=== PATIENT | female | born 1950 | race Caucasian/White ===

== ENCOUNTER 2016-11-11 21:13 | Observation (INO) ==
[2016-11-11] MEDS ORDERED: NITROGLYCERIN 2% OINT 1 INCH/GM PACK TOP STA (21:50)
[2016-11-11] MEDS ORDERED: ASPIRIN 325 MG TABLET PO STA (21:50)
[2016-11-11] MEDS ORDERED: METOPROLOL TARTRATE 5 MG/5 ML VIAL IV STA (21:50)
[2016-11-11] MEDS ORDERED: NITROGLYCERIN 2% OINT 1 INCH/GM PACK TOP ONE (22:04)
[2016-11-11] MEDS ORDERED: ASPIRIN 325 MG TABLET ONE (22:04)
[2016-11-11] MEDS ORDERED: METOPROLOL TARTRATE 5 MG/5 ML VIAL IV ONE (22:04)
--- NOTE | 2016-11-11 22:22 | Emergency Department Note ---
Dior Fry Mantricia, am scribing for, and in the presence of, Maci Priest DO 22:03. ICem Debra, DO, personally performed the services described in this documentation, ascribed by Lamar Rader in my presence, and it is both accurate and complete . Arrival - Arrival Chief Complaint: Chest Pain Stated Complaint: chest pain, N/D ED Nursing Triage Note: C/O CHEST PAIN WITH NAUSEA/VOMITING WITH ONSET AT [facility] 1630 THIS EVENING. + TIGHTNESS AT TRIAGE Mode of Arrival: Ambulatory Limitations: No Limitations Source: Patient Time Seen by Provider: 11/11/16 21:49 - History of Present Illness HPI Narrative: Pt is a 66 y/o white female ambulating to ED with c/o left sided chest pain that onset 1600 today. Pt reports that she was outside in her yard working when she felt a sharp pain in her chest. She reports that she became nauseated, which prompted her to go sit down, which relieved the pain minimally.She denies any radiation of the pain and denies abdominal pain or LE swelling. She reports that she had a stress test and echo performed when she was 39 due to a FHx of heart problems; her tests were benign. At time of exam, pt's blood pressure is 202/93. She reports that she has taken her hypertensives today as prescribed. She reports a chest tightness while in ED. No other complaints were reported to ED. Onset (ago): hour(s) Consistency: constant Severity: moderate Date of Last Menstrual Period: MENAPAUSE Allergies/Adverse Reactions: Allergies Allergy/AdvReac Type Severity Reaction Status Date / Time lidocaine Allergy Unknown/Unable Verified 11/11/16 21:21 to obtain Sulfa (Sulfonamide Allergy Unknown/Unable Verified 11/11/16 21:21 Antibiotics) to obtain tramadol Allergy Nausea Verified 11/11/16 21:21 Review of System - Review of System 12 point system: reviewed and no additional remarkable complaints except as stated - Review of System Constitutional: Absent: chills, diaphoresis, fever Respiratory: Absent: cough Cardiovascular: Present: chest pain Gastrointestinal: Present: nausea. Absent: abdominal pain, vomiting, diarrhea Musculoskeletal: Absent: arm pain, back pain, leg pain, neck pain Medical,Surgical,& Family Hx - Medical History Cardio: History of: Hypertension Gastrointestinal: History of: GERD Musculoskeletal: History of: Back/Neck Problems - Family History Family History: Reports;: Family Cancer, Family Diabetes, Family Heart Disease, Family Hypertension, Family Stroke - Social History Smoking Status: Never smoker Frequency of Alcohol Use: None Type of Drug Use: None Exam Vital Signs: Vital Signs Temperature 98.7 F 11/11/16 21:21 Pulse Rate 106 H 11/11/16 21:21 Respiratory Rate 20 11/11/16 21:21 Blood Pressure 172/107 11/11/16 21:21 O2 Sat by Pulse Oximetry 98 11/11/16 21:21 - General General appearance: alert, in no apparent distress - Head Head exam: Present: atraumatic, normocephalic - Eye Eye exam: Present: normal appearance, PERRL, EOMI - ENT ENT exam: Present: normal exam - Neck Neck exam: Present: normal inspection - Chest Chest inspection: Present: normal inspection - Respiratory Respiratory exam: Present: normal lung sounds bilaterally - Cardiovascular Cardiovascular exam: Present: regular rate, normal rhythm, normal heart sounds - Abdominal Exam Abdominal exam: Present: soft. Absent: distention, tenderness, guarding, rebound - Extremities Exam Extremities exam: Present: normal inspection - Back Exam Back exam: Present: normal inspection - Neurological Exam Neurological exam: Present: alert, oriented X3, CN II-XII intact - Psychiatric Psychiatric exam: Present: normal affect, normal mood - Skin Skin exam: Present: warm, dry, intact, normal color Course Course Narrative: spoke with hospitalist, who will admit pt for rule out. Results - Labs CBC & BMP: 11/11/16 22:07 11/11/16 22:07 Lab Results: I have reviewed the patients labs - EKG EKG results: interpreted by KATHLEEND EKG shows: tachycardia - Diagnostic Findings Procedure: X-ray: image reviewed by me (mild increased vasculature. no infiltrate) Disposition Clinical Impression: Chest pain Case discussed with: patient, patient's family Disposition: Still a Patient Condition: Stable Time of Disposition: 23:08
[2016-11-11 22:32] LABS: Basophils # 0.1 10*3/uL (0.0-0.2); Basophils % 0.8 % (0.0-0.8); Eosinophils # 0.1 10*3/uL (0.0-0.87); Eosinophils % 0.7 % (0.00-10.9); Hematocrit 40.3 VOL% (35.7-47.0); Hemoglobin 14.1 GM/DL (12.0-16.0); Immature Granulocytes % 0.4 %; Immature Granulocytes Absolute 0.04 #; Lymphocytes # 2.3 10*3/uL (1.4-4.0); Lymphocytes % 21.5 % (21.3-54.2); Mean Corpuscular Hemoglobin 30 PG (27-34); Mean Corpuscular Volume 85.2 FL (87-102); Mean Platelet Volume 9.9 FL (9.6-12.0); Monocytes # 0.5 10*3/uL (0.11-0.8); Monocytes % 5.1 % (1.7-12.7); Neutrophils # 7.5 10*3/uL (1.4-7.4); Neutrophils % 71.5 % (38.7-73.9); Platelet Count 276 T/CUMM (130-400); Red Blood Count 4.73 MC/CUMM (3.8-5.5); White Blood Count 10.5 T/CUMM (4-12)
[2016-11-11 22:42] LABS: PT Patient Result 10.4 SECS; Partial Thromboplastin Time 26.8 SECS (0-40)
[2016-11-11 22:56] LABS: Alanine Aminotransferase 41 U/L (13-56); Alkaline Phosphatase 165 U/L (45-117); Aspartate Amino Transferase 17 U/L (0-37); Bilirubin,Total < 0.39 MG/DL (0.2-1.0); Blood Urea Nitrogen 17 MG/DL (7-18); CKMB % 3.7 %; Calcium 9.4 MG/DL (8.5-10.1); Glucose 152 MG/DL (74-106); Osmolality,Calculated 287.1 MOS/KG (273-304); Potassium 3.9 MMOL/L (3.5-5.1); Sodium 142 MMOL/L (136-145); Total Protein 7.6 G/DL (6.4-8.3); Troponin I Only 0.038 NG/ML (0.00-0.045)
[2016-11-11] MEDS ORDERED: ONDANSETRON 4 MG/2 ML VIAL IV PRN (23:42)
[2016-11-11] MEDS ORDERED: ACETAMINOPHEN 325 MG TABLET PO PRN (23:42)
[2016-11-11] MEDS ORDERED: MORPHINE 2 MG/1 ML SYRINGE IV PRN (23:42)
[2016-11-12] MEDS ORDERED: NITROGLYCERIN SL 0.4 MG TABLET SL PRN (00:30)
[2016-11-12] MEDS ORDERED: METOPROLOL TARTRATE 5 MG/5 ML VIAL IV ONE (01:07)
--- NOTE | 2016-11-12 01:12 | Hospitalist History & Physical ---
Assessment and Plan (1) Chest pain Status: Acute Assessment and plan: Admit to hospitalist services. Consult cardiology. Initial troponin was 0.038 and initial CK-MB was 5.1; follow serial cardiac enzymes. Initial EKG showed sinus tachycardia; follow serial EKGs. Nitroglycerin topical x 1 dose and Metoprolol 5 mg IV x 1 dose given in ED; chest pain relieved but still hypertensive. Continue Nitroglycerin 0.4 mg SL Q5 minutes PRN. Hydralazine 10 mg IV Q6 hours PRN. Patient reports that she takes Mycardis for BP. No home medications have been recorded yet. Message to nursing to obtain home medications and update. Consider adding secondary antihypertensive agent. ASA 325 mg PO x 1 dose given in ED; continue with ASA 81 mg PO daily. O2 per protocol. CPAP at home settings. Check TSH/Free T4, A1c, lipid panel, and magnesium in a.m. Recheck CMP in a.m. Current Visit: Yes (2) Hypertension Status: Chronic Assessment and plan: As above. Current Visit: Yes (3) Hyperglycemia Status: Acute Assessment and plan: Patient denies a PMH of diabetes, however BG was 152 in ED. Check A1c in a.m. Current Visit: Yes (4) Acute kidney injury Status: Acute Assessment and plan: Creatinine 1.2 in ED. Likely dehydration from working outside today. Na 142 and Chloride 108. Allow to self-hydrate with water. Recheck CMP in a.m. Current Visit: Yes (5) DVT prophylaxis Status: Acute Assessment and plan: Lovenox 40 mg SQ daily. Current Visit: Yes History of Present Illness Chief complaint: Chest pain History of present illness: Ms. Dinh is a 66 year old female with past medical history of hypertension , GERD, and obstructive sleep apnea who presented to the emergency department today with complaints of chest pain that started around 1630 this afternoon. Ms. Dinh reports that she was working in her yard when she began to experience the chest pain which felt like palpitations and chest tightness. Additionally, she also complained of nausea, weakness, and diaphoresis. She denies vomiting, shortness of breath, and loss of consciousness. The entirety of the event lasted about 10 minutes, with symptoms subsiding about 5 minutes after she sat on her porch and rested. She denies previous episodes of chest pain. She reports that her father from [place] in his 50s and her brother from [place] at the age of 44. Significant labs in the ED were Creatinine 1.2 , Blood glucose 152, and CK-MB 5.1. All other labs were unremarkable. Her EKG showed sinus tachycardia. CXR was negative for any acute process. She was given Nitroglycerin and Metoprolol in the ED. She is currently pain free but remains hypertensive with SBP in the 160s. Hospitalist services were consulted, and the patient will be admitted for further evaluation and treatment. Home medications were not available for review and reconciliation. This patient is a full code. Allergies Allergy/AdvReac Type Severity Reaction Status Date / Time lidocaine Allergy Unknown/Unable Verified 11/11/16 21:21 to obtain Sulfa (Sulfonamide Allergy Unknown/Unable Verified 11/11/16 21:21 Antibiotics) to obtain tramadol Allergy Nausea Verified 11/11/16 21:21 Medical,Surgical,& Family Hx - Medical History Cardio: History of: Hypertension Respiratory: History of: Obstructive Sleep Apnea (uses CPAP at home) Gastrointestinal: History of: GERD Musculoskeletal: History of: Back/Neck Problems - Surgical History HEENT Surgeries: Surgical HX of: Tonsilectomy & Adenoidectomy Abdominal Surgeries: Surgical HX of: Appendectomy Reproductive Surgeries: Surgical HX of;: Tubal Ligation Additional Surgical History: Fatty tumor removal; Basal cell and squamous cell skin cancer removal. - Family History Family History: Reports;: Family Cancer, Family Diabetes, Family Heart Disease, Family Hypertension, Family Stroke - Social History Smoking Status: Never smoker Have you smoked in the last 12 months: No Frequency of Alcohol Use: None Type of Drug Use: None Marital Status: Lives With:: Spouse Functional capacity: independent ambulation 12 point system: reviewed and no additional remarkable complaints except as stated - Constitutional Constitutional: Present: weakness. Absent: chills, fatigue, fever(s), headache( s), malaise - EENT Eyes: Absent: blurry vision, diplopia, loss of vision Ears: Absent: decreased hearing, ear discharge, ear pain Nose, mouth and throat: Absent: headache(s), nasal congestion, sore throat - Cardiovascular Cardiovascular: Present: chest pain with activity, diaphoresis, palpitations. Absent: chest pain at rest, dyspnea, dyspnea on exertion, edema, radiating jaw, neck or arm pain, lightheadedness, orthopnea - Respiratory Respiratory: Absent: cough, dyspnea, wheezing - Gastrointestinal Gastrointestinal: Present: nausea. Absent: abdominal pain, constipation, diarrhea, vomiting - Genitourinary Genitourinary: Absent: dysuria, flank pain, urinary frequency - Musculoskeletal Musculoskeletal: Absent: arthralgias, joint swelling, muscle weakness, myalgias - Neurological Neurological: Absent: confusion, dizziness, numbness, paresthesias, syncope - Psychiatric Psychiatric: Absent: anxiety, depression - Endocrine Endocrine: Absent: cold intolerance, polydipsia, polyphagia - Hematologic/Lymphatic Hematologic/Lymphatic: Absent: easy bleeding, easy bruising Exam - Constitutional Vitals: Period Temp Pulse Resp BP Sys/Walsh Pulse Ox Last 24 Hr 98.7 F-98.7 F 72-106 18-20 172-172/107-107 98 Exam: Constitutional System: Afebrile. Awake, alert and oriented x 3. No distress. No tremulousness. Head: Normocephalic, atraumatic. Ears, Nose and Throat System: No pain or tenderness. No epistaxis or discharge Eyes System: Pupils equal, round, and reactive. Extraocular muscles intact. Neck: Supple, without adenopathy, No jugular venous distention. No thyromegaly, neck mass, or prior surgery apparent. Respiratory System: Chest clear to auscultation. Cardiovascular System: Heart with regular rate and rhythm. No murmur. GI System: Abdomen soft, nontender. Normo active bowel sounds present. Musculoskeletal System: Limbs with no pedal edema. Full distal pulses. Normal capillary refill. Neurological System: No discernable sensory deficit. No aphasia Psychiatric System: Conversation is rational Results - Labs CBC & BMP: 11/11/16 22:07 11/11/16 22:07 Lab Results: I have reviewed the past 24 hour labs
[2016-11-12] MEDS ORDERED: ENOXAPARIN 100 MG/ML SYRINGE SUBCUT ONE (01:54)
[2016-11-12] MEDS: METOPROLOL TARTRATE 25 MG TABLET PO SCH ×3 (02:24→21:50)
[2016-11-12 04:04] LABS: Troponin I Only 0.031 NG/ML (0.00-0.045)
[2016-11-12 04:14] LABS: Alanine Aminotransferase 30 U/L (13-56); Albumin 3.7 G/DL (3.4-5.0); Alkaline Phosphatase 156 U/L (45-117); Aspartate Amino Transferase 12 U/L (0-37); Bilirubin,Total < 0.39 MG/DL (0.2-1.0); Blood Urea Nitrogen 18 MG/DL (7-18); Calcium 9.3 MG/DL (8.5-10.1); Cholesterol 177 MG/DL (50-200); Glucose 132 MG/DL (74-106); HDL Cholesterol 48 MG/DL (40-60); Magnesium 2.3 MG/DL (1.8-2.4); Potassium 3.6 MMOL/L (3.5-5.1); Risk Ratio 3.69; Sodium 143 MMOL/L (136-145); Total Protein 7.1 G/DL (6.4-8.3); Triglycerides 164 MG/DL (2-150); VLDL CHOLESTEROL 32.8 MG/DL
[2016-11-12 06:41] LABS: Troponin I Only 0.021 NG/ML (0.00-0.045)
--- NOTE | 2016-11-12 08:14 | XRay Report ---
XR chest 1V portable Indication: Chest pain Comparison: None available Findings: The heart and mediastinum are normal in size and configuration. The pulmonary vascularity is normal in caliber. No lung infiltrates, effusions, pneumothorax or other abnormality is demonstrated. Impression: Normal chest x-ray PROCEDURE INTERPRETED AT [facility] DEPARTMENT OF RADIOLOGY Final Report Signed by: Dr. Isaac Baker
--- NOTE | 2016-11-12 08:24 | Order Completion Report ---
See report scanned to EMR
[2016-11-12] MEDS: TELMISARTAN 40 MG TABLET PO SCH (09:08)
[2016-11-12] MEDS: PANTOPRAZOLE 40 MG TABLET PO SCH (09:08)
[2016-11-12] MEDS: ENOXAPARIN 40 MG/0.4 ML SYRINGE SUBCUT SCH (09:08)
[2016-11-12] MEDS: ASPIRIN EC 81 MG TABLET PO SCH (09:08)
[2016-11-12] MEDS: hydrALAZINE 20 MG/1 ML VIAL IV PRN ×2 (12:25→18:55)
[2016-11-13] MEDS: ASPIRIN EC 81 MG TABLET PO SCH (08:15)
[2016-11-13] MEDS: TELMISARTAN 40 MG TABLET PO SCH (08:15)
[2016-11-13] MEDS: METOPROLOL TARTRATE 25 MG TABLET PO SCH (08:15)
[2016-11-13] MEDS: ENOXAPARIN 40 MG/0.4 ML SYRINGE SUBCUT SCH (08:15)
[2016-11-13] MEDS: PANTOPRAZOLE 40 MG TABLET PO SCH (08:17)
--- NOTE | 2016-11-13 10:20 | CT Report ---
CT brain Indication: Headaches, hypertension and palpitation Comparison: None available Technique: Axial CT imaging of the brain is performed without contrast with 3 mm increments. Findings: No evidence of hemorrhage, mass mass effect midline shift or acute infarct seen. There is decreased density involving the majority of the white matter both cerebral hemispheres. Remaining brain parenchyma attenuation and differentiation appears within normal limits. The ventricles and cisterns are normal in caliber. No cranial or skull base abnormality is identified. Impression: Decreased white matter density involving majority of the cerebral hemispheres, could indicate encephalopathy. This CT exam was performed using one or more the following dose reduction techniques: Automated exposure control, adjustment of the MA and/or KV according to patient size, or use of iterative reconstruction technique. PROCEDURE INTERPRETED AT [facility] DEPARTMENT OF RADIOLOGY Final Report Signed by: Dr. Isaac Baker
--- NOTE | 2016-11-13 11:04 | Cardiology Consult Note ---
Glen Fry Lesley, KRISTOPHER, am scribing for, and in the presence of, Angie Huerta MD 11:03. Assessment and Plan - Time spent with patient Time spent with patient: Greater than 30 minutes (Record review, assessment, documentation) (1) Hypertriglyceridemia Status: Chronic Assessment and plan: SEE PLAN LISTED BELOW Current Visit: Yes (2) Chest pain Status: Resolved Assessment and plan: SEE PLAN LISTED BELOW Current Visit: Yes (3) Hypertension Status: Chronic Assessment and plan: SEE PLAN LISTED BELOW Current Visit: Yes (4) Heart palpitations Status: Acute Assessment and plan: SEE PLAN LISTED BELOW Current Visit: Yes (5) Headache Status: Acute Assessment and plan: SEE PLAN LISTED BELOW Current Visit: Yes History of Present Illness - Data of Consult Patient: new to practice Consult date: 11/13/16 Requesting Physician: Lane Hawkins Primary care physician: Wilner Santa - Consult Narrative Reason for consult: chest pain 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 Dinh is a 66 year old WF, came into the emergency room with complaints of heart palpitations, nausea, and chest tightness. She reports that she was at home and had been working in her yard for 1-2 hours, when she felt her heart pounding in her chest, and sudden onset of nausea without vomiting. She denies shortness of breath, dizziness, or feeling lightheaded during this episode. She states the episode lasted for 15 or more minutes she sat down to rest and the heart palpitations did improve. She states she felt chest tightness on the left side of her chest wall that was unrelieved by any factors, which began after her palpitations subsided. The chest tightness remained for some time until after admission. She reports she has had a "headache" that she describes as tightness in the temporal region. She notes that her blood pressure was uncontrolled when she came to the ER, and this is when her headache started. This has persisted despite cessation of nitroglycerin, began prior to these medications, and she has never had these symptoms before. There is no associated focal neurologic deficit. Past medical history includes hypertension , GERD, INGRID. Her family history is significant for coronary artery disease, she reports her father in his 50s of an [place], and 4 brothers in their 50s, one in his 40s after CABG surgery. She reports that her mother at age 69 with cancer, she was also diabetic, and her sister in her 40s of cancer. She has no personal history of cancer other than skin cancers that have been removed. She has never smoked, denies alcohol use, denies drug use. She denies any new medications started in the last week, she denies use of energy drinks, she denies any recent history of illness or recent dehydration. She reports she had an echocardiogram and a stress test approximately 25 years ago due to her significant family history, she reports both were unremarkable. She was sitting in the chair this morning, she denies any complaints of chest discomfort or heart palpitation since she was admitted for observation. Vital signs remained stable, although borderline normal. Labs reviewed today, creatinine noted at 1.1 which is slightly down from the day previous. Glucose 132, but her hemoglobin A1c is 5.9. Cardiac biomarkers remain negative. Triglycerides 164. TSH is 4.56, free T4 0.94, the patient denies symptomatology and a history of hypothyroidism. She does continue to report a headache, which she describes as tightness that she feels in bilateral temporal regions. Neurologically the patient is intact, without weakness to 4 extremities. Our plan is to get a CT of the head, once this has been accomplished we will consider discharging the patient home. It is feasible that she could have a stroke associated with a paroxysmal atrial fibrillation, and this is why we will go ahead and order the CT scan of the head and a 30 day event monitor. Would recommend a 30 day event monitor, echocardiogram, stress test to be done at [facility]. IMPRESSION AND PLAN: 1. HEART PALPITATIONS - no evidence of dysrhythmia while being monitored on cardiac telemetry, will discharge the patient with a 30 day event monitor, will initiate Plavix. 2. CHEST DISCOMFORT - Cardiac biomarkers negative, EKG without ischemic changes , this has resolved. Will schedule Echo and NST outpatient at [facility]. 3. UNCONTROLLED HYPERTENSION - Initiate Toprol XL 25mg daily, continue Micardia 80mg. 4. HEADACHE - CT of the head today to rule out stroke. 5. HYPERTRIGLIDEMIA - Trigs 164, recommend weight loss and exercise. CC: Lane Hawkins MD - Home Medications and Allergies Home Medications: Home Medications Medication Instructions Recorded Confirmed Type Calcium Citrate/Vitamin D3 1 tablet PO DAILY 11/12/16 11/12/16 History [Calcium Citrate - Vit D3 Tab] Esomeprazole Magnesium [Nexium] 1 capsule PO DAILY 11/12/16 11/12/16 History Estrogens(Conj)/Medr 0.45-1.5 1 tablet PO DAILY 11/12/16 11/12/16 History [Prempro 0.45-1.5] Methocarbamol Tab [Robaxin Tab] 750 mg PO TID 11/12/16 11/12/16 History Multivitamin [One Daily 1 tablet PO TID 11/12/16 11/12/16 History Multivitamin] Telmisartan 1 tablet PO DAILY 11/12/16 11/12/16 History Allergies/Adverse Reactions: Allergies Allergy/AdvReac Type Severity Reaction Status Date / Time lidocaine Allergy Unknown/Unable Verified 11/11/16 21:21 to obtain Sulfa (Sulfonamide Allergy Unknown/Unable Verified 11/11/16 21:21 Antibiotics) to obtain tramadol Allergy Nausea Verified 11/11/16 21:21 - Constitutional Constitutional: Present: headache(s). Absent: anorexia, chills, daytime sleepiness, frequent falls, lethargy, malaise, weakness - EENT Nose, mouth and throat: Present: headache(s). Absent: dysphagia, epistaxis, sinus pressure, sore throat, vertigo - Cardiovascular Cardiovascular: Present: chest pain at rest, chest pain with activity, palpitations. Absent: claudication, diaphoresis, dyspnea, dyspnea on exertion, edema, radiating jaw, neck or arm pain, lightheadedness - Respiratory Respiratory: Absent: cough, dyspnea, dyspnea on exertion - Gastrointestinal Gastrointestinal: Present: nausea. Absent: abdominal pain, change in bowel habits, coffee ground emesis, hematemesis, hematochezia, vomiting - Genitourinary Genitourinary: Absent: difficulty urinating, dysuria, flank pain - Musculoskeletal Musculoskeletal: Absent: arthralgias - Neurological Neurological: Present: headache(s). Absent: abnormal gait, abnormal speech, behavioral changes, confusion, dizziness, frequent falls, paresthesias - Psychiatric Psychiatric: Absent: anxiety, depression - Endocrine Endocrine: Absent: fatigue Medical,Surgical,& Family Hx - Medical History Cardio: History of: Hypertension HEENT: History of: Eye Problem (cataracts) Respiratory: History of: Obstructive Sleep Apnea (uses CPAP at home) Gastrointestinal: History of: GERD Musculoskeletal: History of: Back/Neck Problems, Musculoskeletal Problems ( bulging disk) - Surgical History HEENT Surgeries: Surgical HX of: Tonsilectomy & Adenoidectomy Abdominal Surgeries: Surgical HX of: Appendectomy Reproductive Surgeries: Surgical HX of;: Tubal Ligation Patient denies;: Genitourinary Surgery - Family History Family History: Reports;: Family Cancer, Family Diabetes, Family Heart Disease, Family Hypertension, Family Stroke - Social History Smoking Status: Never smoker Frequency of Alcohol Use: None Type of Drug Use: None Functional capacity: independent ambulation Physical Examination Vital Signs Temp Pulse Resp BP Pulse Ox 98.7 F 106 H 20 172/107 98 11/11/16 21:21 11/11/16 21:21 11/11/16 21:21 11/11/16 21:21 11/11/16 21:21 Exam: General: Appears well with no apparent distress. Pleasant and cooperative. Appears comfortable. HEENT: PERRL, normocephalic, atraumatic. Mucous membranes moist. No jaundice noted. Conjunctiva moist and clear, sclerae anicteric. Neck: No JVD/HJR, no thyromegaly or lymphadenopathy noted. No carotid bruit appreciated. Cardiac: Regular rate and rhythm. No murmur rub or gallop. PMI is nondisplaced. Lungs: Clear to auscultation without accessory muscle use to assist the respiratory pattern. No oxygen in use. Abdomen: Soft, bowel sounds normoactive. Nontender and nondistended. No abdominal bruit or thrill noted. No masses noted. Musculoskeletal: No fluid collection. Full range of motion is noted, sitting in chair. Extremities: No clubbing, cyanosis noted. No edema noted. Upper extremity pulses 2+. Lower extremity pulses 2+. Capillary refill less than 3 seconds. Skin: Warm and dry. No unusual lesions or rashes. No skin breakdown appreciated. Neuro: Awake, alert and oriented 3. Moves all extremities well without hemiparesis or paralysis. No essential tremor is appreciated. No focal motor neurologic deficits are appreciated. Result/EKG - Labs CBC & BMP: 11/11/16 22:07 11/12/16 02:57 Lab Results: I have reviewed the past 24 hour labs - Diagnostic Findings Procedure: Chest x-ray: report reviewed by me - EKG EKG results: interpreted by me, sinus rhythm Specialty Discharge - Follow Up or Referrals Follow up with: Angie Huerta MD [Physician] - 2 Weeks (EKG, BMP with Mag, CBC prior to appt. Schedule Echocardiogram and Stress Test today or Sunday if possible. 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 Pt. requests Sunday or Sunday of this week - 11/13 or 11/14. I, Angie Huerta MD, personally performed the services described in this documentation, ascribed by Laya Carroll NP in my presence, and it is both accurate and complete .
[2016-11-13] MEDS ORDERED: CLOPIDOGREL 75 MG TABLET PO SCH (12:00)
[2016-11-13 12:03] VITALS: BP 165/81
--- NOTE | 2016-11-13 13:12 | Discharge Summary ---
<Rene Cowan - Last Filed: 11/13/16 13:57> Hospital Course - Hospital Course Hospital Course: This is a 66-year-old female that presented to the ED at [facility] on the night of November 11, 2016 for the evaluation of chest pain, nausea, and vomiting. The patient has a medical history significant for hypertension, gastroesophageal reflux disease, chronic neck and back pain. Patient reported no significant surgical history at the time of presentation. The patient reported the onset of symptoms on the afternoon of admission. The patient reported that she was performing some gardening in her yard when she had an acute onset of chest pain that she described as "sharp". In addition, the patient reported that she became nauseated which prompted her to sit down for a rest period; which served as a degree of relief. The patient denied abdominal pain, lower extremity edema, visual changes, headache, or radiation of pain. After her symptoms fail to improve, the patient presented to the ED for further evaluation. The patient was assessed at the time of ED presentation. The patient was noted to be grossly hypertensive with a blood pressure recorded at 202/93. The chest pain protocol was initiated. Labs were obtained which were significant for chloride 108, creatinine 1.20, glucose 152, alkaline phosphatase 165, CK-MB 5.1 , troponin 0.038, and globulin at 3.6. Chest x-ray was essentially unremarkable for the presence of any acute cardiopulmonary abnormalities. The patient was subsequently admitted to the hospitalist service for continuation of care. Due to the elevations in the patient's troponin level at the time of admission, a cardiology consultation was requested. She will follow-up with them tomorrow for echo and stress tesign. CT brain without contrast was significant for decreased white matter density involving majority of the cerebral hemispheres a possible indication of encephalopathy. Patient has no symptoms suggestive of this. She will follow-up with neurology at [facility] for further evaluation. Serial cardiac enzymes were ordered and were noted at 0.031 and 0.021. Lipid panel reported triglycerides at 164. The patient's condition slowly improved. The patient's condition is stable. She has not experienced any significant overnight events. She has reached maximal benefit of inpatient stay and will be discharged to home. Specialty Discharge - Follow Up or Referrals Follow up with: [facility] [Outside] - 01/12/17 10:30 am (WITH DR OLGUIN IN HIS FLOWOOD OFFICE. THE OFFICE WILL MAIL YOU A PACKET TO FILL OUT WITH DIRECTIONS TO YOUR APPOINTMENT. ANY QUESTIONS PLEASE CALL [phone]) Angie Huerta MD [Physician] - 11/29/16 8:30 am (EKG, BMP with Mag, CBC prior to appt. 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 MS RICHTER YOU ARE SCHED FOR A STRESS TEST AND ECHO ON 2016 @[facility] [phone]: 12:40 LABWORK ECH 13:00 AND1:45 STRESS TEST. ) Discharge Plan - Discharge Data Disposition: Disch To Home/Self Care - Discharge Medications New Clopidogrel [Plavix] 75 mg PO DAILY #30 tablet Metoprolol Succinate Xl [Toprol Xl] 25 mg PO DAILY #30 tablet Continue Methocarbamol Tab [Robaxin Tab] 750 mg PO TID Telmisartan 1 tablet PO DAILY Esomeprazole Magnesium [Nexium] 1 capsule PO DAILY Calcium Citrate/Vitamin D3 [Calcium Citrate - Vit D3 Tab] 1 tablet PO DAILY Estrogens(Conj)/Medr 0.45-1.5 [Prempro 0.45-1.5] 1 tablet PO DAILY Multivitamin [One Daily Multivitamin] 1 tablet PO TID - Follow Up or Referral Follow Up: [facility] [Outside] - 01/12/17 10:30 am (WITH DR OLGUIN IN HIS [employer] OFFICE. THE OFFICE WILL MAIL YOU A PACKET TO FILL OUT WITH DIRECTIONS TO YOUR APPOINTMENT. ANY QUESTIONS PLEASE CALL [phone]) Angie Huerta MD [Physician] - 11/29/16 8:30 am (EKG, BMP with Mag, CBC prior to appt. 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 MS RICHTER YOU ARE SCHED FOR A STRESS TEST AND ECHO ON 2016 @[employer] : 12:40 LABWORK ECH 13:00 AND1:45 STRESS TEST. ) - Forms/Instructions Instructions: Metoprolol (By mouth), Clopidogrel (By mouth) Exam - Constitutional Vitals: Period Temp Pulse Resp BP Sys/Walsh Pulse Ox Last 24 Hr 96.6 F-98.3 F 64-84 18-22 137-165/64-81 90-99 DS: Provider Date of admission: 11/11/16 23:30 Primary care physician: . No PCP Attending physician on admission: Migel Chavira MD Consults: 11/11/16 23:42 Consult to Physician [CONS] Routine Comment: Chest pain Consulting Provider: Cardiology - [facility] Person Notified: dr. em Date Notified: 11/12/16 Time Notified: 08:13 Discharging clinician: Rene Cowan CNP <Lane Hawkins - Last Filed: 11/13/16 17:05> Discharge Plan - Discharge Data Condition at Discharge: Stable Discharge Diet: heart healthy, low salt diet Activity: increase activity as tolerated Hygiene: no restrictions Weight Bearing at Discharge: weight bear as tolerated Driving: no restrictions Contact your physician if you experience:: Nausea/Vomiting, Shortness of breath
[2016-11-13] MEDS ORDERED: ROSUVASTATIN 20 MG TABLET PO SCH (14:30)
[2016-11-14] MEDS ORDERED: METOPROLOL SUCCINATE XL 25 MG TABLET PO SCH (09:00)
--- NOTE | 2016-11-15 20:35 | Order Completion Report ---
See report scanned to EMR
== END 2016-11-13 14:25 | disposition home or self-care (01) ==
LOC: N.ED 21:13 → N.EDINP 21:13 → SUATTDRO 23:30 → N.2E 11-12 00:42
PROVIDERS: ADMIT Internal Medicine; ATTEND Internal Medicine